=== PATIENT | male | born 1965 | race Caucasian/White ===

== ENCOUNTER 2023-10-21 05:27 | Day surgery (SDC) | payer BC, MEDICAID ==
[~2023-10-21] VITALS: Ht 167.6 cm; Wt 65.0 kg
[~2023-10-21 05:27] MED LIST: ATRIPLA PO; CENTRUM1 TAB PO; COMPLERA 200 MG1 TAB PO; FISH OIL CONC1000 MG PO; KLONOPIN PO; LEXAPRO; LR 1,000 ML IV SCH; NIACIN 100100 MG/TAB PO; NIACIN PO; NORCO 325 MG-7.1 TAB PO; PROBIOTIC FORMU1 CAP PO; VENTOLIN0.09 MG IH; WELLBUTRIN PO; ZITHROMAX TRI-500 MG PO
[2023-10-21 06:34] VITALS: BP 98/58; PULSE 61; TEMP 97.1
[2023-10-21] MEDS ORDERED: fentaNYL 50 MCG/ML 2 ML VIAL ONE (07:00)
[2023-10-21] MEDS ORDERED: Ondansetron 4 MG/2 ML VIAL ONE (07:00)
[2023-10-21] MEDS ORDERED: Lidocaine PF 2% (20 MG/ML) 5 ML VIAL ONE (07:00)
[2023-10-21] MEDS ORDERED: Lidocaine PF 2% (20 MG/ML) 10 ML POLY AMP IJ ONE (07:30)
[2023-10-21] MEDS ORDERED: Ondansetron 4 MG/2 ML VIAL IV PRN ×2 (07:45→08:30)
[2023-10-21] MEDS ORDERED: fentaNYL 50 MCG/ML 1 ML SYRINGE/VIAL [PACU/SDC ONLY] IV PRN (07:45)
[2023-10-21] MEDS ORDERED: hydrALAZINE 20 MG/ML 1 ML VIAL IV PRN (07:45)
[2023-10-21] MEDS ORDERED: HYDROmorphone 1 MG/1 ML SYRINGE [PACU/SDC ONLY] IV PRN (07:45)
[2023-10-21 08:15] VITALS: BP 91/55; PULSE 56; TEMP 97.6
--- NOTE | 2023-10-21 08:27 | NUR ---
0815: PT TO BAY 7 VIA CART FROM OR. ALERT AND ORIENTED. VSS. BREATHING EVEN AND UNLABORED ON RA. REPORT RECEIVED FROM SHERIF IYER. DRESSING TO RT INGUINAL HERNIA SURGICAL SITE COVERED WITH 4X4 AND MEDIPORE TAPE. C/D/I. PT DENIES PAIN AND NAUSEA AND REQUESTING MUFFIN AND COFFEE. NO FURTHER NEEDS NOTED. RESTING IN COT. CALL LIGHT IN REACH. NO FAMILY PRESENT. ENMANUEL SMITH, NOTIFIED FOR RIDE.
[2023-10-21 08:30] VITALS: BP 97/56; PULSE 61
[2023-10-21] MEDS ORDERED: Morphine 4 MG/ML VIAL IV PRN (08:30)
--- NOTE | 2023-10-21 08:33 | NUR ---
0830: PT ALERT AND ORIENTED. VSS. BREATHING EVEN AND UNLABORED ON RA. TOLERATING MUFFIN AND COFFEE. DENIES PAIN AND NAUSEA. NO FURTHER NEEDS NOTED. RESTING IN COT. CALL LIGHT IN REACH.
[2023-10-21 08:45] VITALS: BP 95/58; PULSE 54
[2023-10-21] MEDS ORDERED: Acetaminophen 500 MG TAB PO PRN (08:45)
--- NOTE | 2023-10-21 09:01 | NUR ---
0845: PT ALERT AND ORIENTED. VSS. BREATHING EVEN AND UNLABORED. CONTINUES TO DENY PAIN AND NAUSEA. SURGICAL DRESSING REMAINS C/D/I. DISCHARGE EDUCATION COMPLETED. PT STATED UNDERSTANDING OF HOME AND FOLLOW-UP CARE. DC PAPERWORK GIVEN TO PT. IV DC'D AT THIS TIME. PT DENIES ASSISTANCE WITH DRESSING. 0855: PT AMBULTED SELF TO BATHROOM AND STATED HE WAS ABLE TO URINATE. 0900: PT OFF UNIT AT THIS TIME PER WHEELCHAIR. PT DISCHARGED TO HOME W/ ROOMMATEENMANUEL, PER PERSONAL VEHICLE.
== END 2023-10-21 09:00 | disposition home or self-care (01) ==
LOC: SDCO 05:27
DX: K40.90 Unilateral inguinal hernia, without obstruction or gangrene, not specified as recurrent (principal); F17.210 Nicotine dependence, cigarettes, uncomplicated
CPT/HCPCS: C1781; J0690; J2405; J2704; J3010; J7120